=== PATIENT | male | born 1950 | race Caucasian/White ===

== ENCOUNTER → 2018-09-24 18:24 | Outpatient (REF) | payer MEDICARE, OTHER, SELFPAY ==
[2018-09-24 19:10] LABS: Alanine Aminotransferase 43 IU/L (21-72); Albumin 4.5 g/dL (3.5-5.0); Albumin Globulin Ratio 1.6 (1.0-2.8); Alkaline Phosphatase 67 U/L (38-126); Aspartate Aminotransferase 28 IU/L (17-59); BUN Creatinine Ratio 18.2 (6-22); Bilirubin Total 0.8 mg/dL (0.2-1.3); Blood Urea Nitrogen 20 mg/dL (9-20); Calcium 9.6 mg/dL (8.4-10.2); Carbon Dioxide 29 mmol/L (22-32); Chloride 101 mmol/L (98-107); Cholesterol 172 mg/dL (140-199); Estimated Glomerular Filt Rate > 60.0 mL/min (>60); Globulin 2.8 g/dL (1.7-4.1); Glucose 85 mg/dL (80-110); HDL Cholesterol 49 mg/dL (40-60); HEMOLYSIS < 15 (0-50); LDL Cholesterol Calculated 97 mg/dL (<100); Potassium 4.6 mmol/L (3.4-5.1); Sodium 139 mmol/L (137-145); Total Protein 7.3 g/dL (6.3-8.2); Triglycerides 131 mg/dL (35-150)
== END ==
LOC: LAB 18:24
PROVIDERS: Family Provider Family Medicine Geriatric Medicine; PCP Family Medicine Geriatric Medicine; Visit Provider Family Medicine Geriatric Medicine
DX: I10 Essential (primary) hypertension (principal); E78.5 Hyperlipidemia, unspecified
CPT/HCPCS: 36415; 80053; 80061

== ENCOUNTER → 2018-11-18 10:50 | Outpatient (CLI) | payer MEDICARE, OTHER, SELFPAY ==
--- NOTE | 2018-11-18 | DI.MRI.S_ITS ---
PROCEDURE: MR SHOULDER LT WO CON INDICATIONS: Impingement syndrome of unspecified shoulder TECHNIQUE: Noncontrast oblique coronal T2 fast spin echo with fat saturation, oblique sagittal T1 spin echo and T2 fast spin echo with fat saturation, axial T1 spin echo and T2 fast spin echo with fat saturation through the shoulder. COMPARISON: None. FINDINGS: Image quality: Excellent. Rotator cuff: Slitlike full-thickness tear involving the supraspinatus tendon the junction of the critical zone and footprint. This measures 1 mm on coronal image 8 series 8. Infraspinatus tendinopathy and low-grade articular surface fraying. Teres minor appears intact. Subscapularis tendinopathy and thickening. There is atrophy of the supraspinatus and subscapularis muscles. Diffuse fatty infiltration of the infraspinatus muscle. Bones and bursae: No bone marrow contusions or fractures. Moderate acromioclavicular joint degeneration. The acromion demonstrates conventional anatomy, without an os acromiale. Large joint effusion. Capsule and soft tissues: Irregularity of the posterior labrum, image 12 series 6. There is adjacent glenoid rim sclerosis and spurring and this is compatible with chronic labral tear. No definite posterior subluxation of the humeral head relative to glenoid. The long head of the biceps tendon demonstrates normal location and morphology. The rotator interval appears normal, without fibrosis. The coracohumeral ligament is normal in thickness. IMPRESSION: Slitlike full-thickness tear of the supraspinatus tendon. Infraspinatus tendinopathy with low-grade articular surface fraying. Subscapularis tendinopathy. Atrophy of the supraspinatus and subscapularis muscles. Chronic posterior labral tear Dictated by: Rakesh Agosto M.D. on 11/18/2018 at 12:34 Approved by: Rakesh Agosto M.D. on 11/18/2018 at 13:07
== END ==
PROVIDERS: PCP Family Medicine Geriatric Medicine; Visit Provider Physician Assistant
DX: M75.42 Impingement syndrome of left shoulder (principal); M75.122 Complete rotator cuff tear or rupture of left shoulder, not specified as traumatic; M19.012 Primary osteoarthritis, left shoulder; S43.492A Other sprain of left shoulder joint, initial encounter
CPT/HCPCS: 73221

== ENCOUNTER → 2023-08-05 15:09 | Outpatient (CLI) | payer MEDICARE, OTHER, SELFPAY ==
--- NOTE | 2023-08-05 | DI.MRI.S_ITS ---
PROCEDURE: MR SHOULDER RT WO CON INDICATIONS: Pain in right shoulder TECHNIQUE: Noncontrast oblique coronal T2 fast spin echo with fat saturation, oblique sagittal T1 spin echo and T2 fast spin echo with fat saturation, axial T1 spin echo and T2 fast spin echo with fat saturation through the shoulder. COMPARISON: None. FINDINGS: Image quality: Excellent. Rotator cuff: There is full-thickness, partial width tearing of the posterior supraspinatus tendon and the anterior infraspinatus tendon at their distal insertions measuring approximately 14 mm in anterior-posterior dimension with 6 mm of proximal tendon retraction. Findings are superimposed on chronic tendinosis. There is grade 2 fatty infiltration of the infraspinatus muscle with superimposed edema suggesting recent muscle strain. The teres minor tendon is intact. There is moderate grade partial articular sided tearing of the subscapularis tendon at the superior insertion superimposed on moderate tendinosis. Bones and bursae: No acute trabecular bone injury or fracture. Chronic traction cystic changes are seen at the posterosuperior humeral head and greater tuberosity near the rotator cuff tendon insertions. Mild degenerative spurring is seen in the glenoid rim. There is partial-thickness cartilage irregularity in the glenohumeral joint. Moderate degenerative changes are seen at the acromioclavicular joint with subchondral cystic changes and edema and marginal osteophyte formation. A small amount of fluid in the subacromial/subdeltoid bursa communicates with the glenohumeral joint space. Capsule and soft tissues: There is mild diffuse labral degeneration. The proximal biceps long head tendon demonstrates moderate tendinosis and likely partial intrasubstance tearing. Glenohumeral ligaments appear to be intact. IMPRESSION: 1. Full-thickness, partial width tearing of the posterior supraspinatus tendon and the anterior infraspinatus tendon at the distal insertions measuring 14 mm in anterior-posterior dimension with 6 mm of proximal tendon retraction. Findings are superimposed on chronic tendinosis. Mild grade 2 fatty infiltration of the infraspinatus muscle with superimposed low-grade muscle strain. 2. Moderate tendinosis and focal moderate grade partial articular sided tearing of the subscapularis tendon at the superior insertion. 3. Partial intrasubstance tearing of the proximal biceps long head tendon superimposed on moderate tendinosis. 4. [id number] glenohumeral osteoarthrosis. Diffuse labral degeneration. 5. Moderate acromioclavicular joint osteoarthrosis. 6. Small subacromial/subdeltoid bursal effusion communicates with the glenohumeral joint space. Approved by: Adan Angel M.D. on 08/06/2023 at 10:20
== END ==
LOC: MRI 15:11
PROVIDERS: PCP Family Medicine; Referring Provider Orthopaedic Surgery; Visit Provider Orthopaedic Surgery
DX: M25.411 Effusion, right shoulder (principal); M75.121 Complete rotator cuff tear or rupture of right shoulder, not specified as traumatic; S46.111A Strain of muscle, fascia and tendon of long head of biceps, right arm, initial encounter; M19.011 Primary osteoarthritis, right shoulder; M25.511 Pain in right shoulder
CPT/HCPCS: 73221